=== PATIENT | male | born 1985 | race Caucasian/White ===

== ENCOUNTER 2017-02-14 18:04 | Emergency (ER) | payer SELFPAY ==
[~2017-02-14 18:04] MED LIST: ADVIL200 MG; ALBUTEROL17 GM INH; CYCLOBENZAPRINE10 M1 PO; DICLOFENAC POTA50 M1 PO; FLEXERIL10 MG PO; FLOVENT HFA12 GM IH; NO HOME MEDICATION XX; NORCO 5-325 TA1 EACH PO; PREDNISONE20 M1 PO; PRIMATENE MIS; PROAIR HFA8.5 GM IH; PROVENTIL HFA6.7 GM IH; PROVENTIL17 GM IH; VICODIN 5/500 T1 TAB PO; [UNRECOGNIZED DRUG - OTHER]
[2017-02-14] MEDS ORDERED: ULTRAM50 M1 PO (18:40)
[2017-02-14] MEDS ORDERED: PENICILLIN V P500 M1 PO (18:40)
== END 2017-02-14 18:45 ==
LOC: EDMED 18:04
PROC: 3E023BZ Introduction of Anesthetic Agent into Muscle, Percutaneous Approach (ICD-10-PCS; principal; 2017-02-14)
DX: K02.9 Dental caries, unspecified (principal); J45.909 Unspecified asthma, uncomplicated; F17.210 Nicotine dependence, cigarettes, uncomplicated